=== PATIENT | male | born 1950 | race Caucasian/White ===

== ENCOUNTER 2017-01-07 19:22 | Emergency (ER) | payer SELFPAY ==
[2017-01-07] MEDS ORDERED: NS 0.9% 1000 ML* 1,000 ML IV ONE (20:05)
[2017-01-07] MEDS ORDERED: Diltiazem IV* 5 MG/ML 5 ML VIAL (for loading dose/IV Push) (25 MG) IV SLOW PU ONE (20:05)
--- NOTE | 2017-01-07 20:41 | RAD ---
HISTORY: Tachycardia COMPARISONS: None VIEWS:1: Single frontal portable view of the chest at 8:34 PM FINDINGS: LINES AND TUBES: None. CARDIOMEDIASTINAL SILHOUETTE: The cardiomediastinal silhouette is normal for portable technique. PLEURA: The costophrenic angles are sharp. No pleural abnormalities are noted. LUNG PARENCHYMA: The lungs are clear. ABDOMEN: The upper abdomen is clear. There is no subphrenic gas. BONES AND SOFT TISSUES: No bone or soft tissue abnormalities are noted. IMPRESSION: NO ACTIVE CARDIOPULMONARY DISEASE.
[2017-01-07] MEDS ORDERED: Diltiazem CD CAP* 120 MG PO ONE (20:55)
[2017-01-07 21:02] LABS: Hematocrit 43 % (42-52); Hemoglobin 14.3 g/dl (14.0-18.0); Mean Corpuscular HGB Conc 34 g/dl (31-36); Mean Corpuscular Hemoglobin 31 pg (27-31); Mean Corpuscular Volume 91 fL (80-94); Mean Platelet Volume 9 um3 (7.4-10.4); Red Blood Count 4.65 10^6/ul (4.0-5.4); Red Cell Distribution Width 14 % (10.5-15); White Blood Count 8.2 10^3/ul (3.5-10.8)
[2017-01-07 21:17] LABS: BUN/Creatinine Ratio 23.7 (8-20); C Reactive Protein 4.91 mg/L (< 5.00); Calcium 9.1 mg/dL (8.6-10.3); Globulin 2.7 g/dL (2-4); Magnesium 2.3 mg/dL (1.9-2.7); Potassium 3.9 mmol/L (3.5-5.0); Total Bilirubin 0.4 mg/dL (0.2-1.0); Total Protein 6.7 g/dL (6.4-8.9)
[2017-01-07 21:19] LABS: Troponin I 0.01 ng/mL (<0.04)
[2017-01-07 21:37] LABS: TSH (Thyroid Stimulating Horm) 0.45 mcIU/mL (0.34-5.60)
--- NOTE | 2017-01-07 22:45 | ED ---
Dunia Barbosa Rebecca, scribed for Kevin Christianson MD on 01/07/17 at 2003 . Palpitations / Dysrhythmia - HPI Summary HPI Summary: Pt is a 66 y/o M who presents to ED c/o palpitations. Sx began last night and have been constant since onset, characterized as irregular and fast. Sx aggravated and alleviated by nothing. Additionally c/o elevated BP and CP last night when sx began, both of which are resolved. Denies SOB. PMHx A Fib 4 months ago where he was admitted to a hospital in [place] for 2 days and treated successfully with Cordarone. Current sx are similar to prior episode of A Fib.Takes Eliquis BID and has been compliant. Son reports he took a medication last night that was prescribed by the hospital where he was admitted to treat recurrences of A Fib. Patient speaks [place] and is accompanied by his and son with the son acting as a talent program manager. - History of Current Complaint Chief Complaint: EDDysrhythmPalp Time Seen by Provider: 01/07/17 19:52 Hx Obtained From: Family/Machine Load Clerk - Son - talent program manager Onset/Duration: Still Present Timing: Constant Character: Fast, Irregular Aggravating: Nothing Alleviating: Nothing Associated Signs & Symptoms: Chest Pain - resolved - Allergy/Home Medications Allergies/Adverse Reactions: Allergies Allergy/AdvReac Type Severity Reaction Status Date / Time No Known Allergies Allergy Verified 01/07/17 20:59 PMH/Surg Hx/FS Hx/Imm Hx Cardiovascular History: Reports: Hx Atrial Fibrillation, Hx Hypercholesterolemia History: Reports: Other Problems/Disorders - Hx Prostate adenoma Infectious Disease History: No Infectious Disease History: Reports: Traveled Outside the [place] in Last 30 Days - [place] - Family History Known Family History: Positive: Other - Stomach CA - mother - Social History Alcohol Use: Occasionally Substance Use Type: Reports: None Smoking Status (MU): Never Smoked Tobacco Review of Systems Positive: Other - elevated BP - resolved Positive: Palpitations - irregular and fast, Chest Pain - resolved Negative: Shortness Of Breath All Other Systems Reviewed And Are Negative: Yes Physical Exam - Summary Physical Exam Summary: General: well-appearing, no pain distress Skin: warm, color reflects adequate perfusion, dry Head: normal Eyes: EOMI, JIMENEZ ENT: normal Neck: supple, nontender Respiratory: CTA, breath sounds present Cardiovascular: tachycardic, IRR Abdomen: soft, nontender Bowel: present Musculoskeletal: normal, strength/ROM intact Neurological: normal, sensory/motor intact, A&O x3 Psychological: affect/mood appropriate Triage Information Reviewed: Yes Vital Signs On Initial Exam: Initial Vitals Temp Pulse Resp BP Pulse Ox 97.8 F 67 16 110/81 98 01/07/17 19:25 01/07/17 19:25 01/07/17 19:25 01/07/17 19:25 01/07/17 19:25 Vital Signs Reviewed: Yes Diagnostics - Vital Signs Vital Signs Temp Pulse Resp BP Pulse Ox 01/07/17 19:25 97.8 F 67 16 110/81 98 - Laboratory Lab Results: Lab Results 01/07/17 01/07/17 01/07/17 Range/Units 20:45 20:45 20:45 WBC 8.2 (3.5-10.8) 10^3/ul RBC 4.65 (4.0-5.4) 10^6/ul Hgb 14.3 (14.0-18.0) g/dl Hct 43 (42-52) % MCV 91 (80-94) fL MCH 31 (27-31) pg MCHC 34 (31-36) g/dl RDW 14 (10.5-15) % Plt Count 205 (150-450) 10^3/ul MPV 9 (7.4-10.4) um3 Neut % (Auto) 68.8 (38-83) % Lymph % (Auto) 20.5 L (25-47) % [place] % (Auto) 8.9 (1-9) % Eos % (Auto) 0.7 (0-6) % Baso % (Auto) 1.1 (0-2) % Absolute Neuts (auto) 5.6 (1.5-7.7) 10^3/ul Absolute Lymphs (auto) 1.7 (1.0-4.8) 10^3/ul Absolute Monos (auto) 0.7 (0-0.8) 10^3/ul Absolute Eos (auto) 0.1 (0-0.6) 10^3/ul Absolute Basos (auto) 0.1 (0-0.2) 10^3/ul Absolute Nucleated RBC 0 10^3/ul Nucleated RBC % 0 INR (Anticoag Therapy) 1.06 (0.89-1.11) APTT 37.2 H (26.0-36.3) seconds Sodium (133-145) mmol/L Potassium (3.5-5.0) mmol/L Chloride (101-111) mmol/L Carbon Dioxide (22-32) mmol/L Anion Gap (2-11) mmol/L BUN (6-24) mg/dL Creatinine (0.67-1.17) mg/dL Est GFR ( Amer) (>60) Est GFR (Non-Af Amer) (>60) BUN/Creatinine Ratio (8-20) Glucose (70-100) mg/dL Lactic Acid (0.5-2.0) mmol/L Calcium (8.6-10.3) mg/dL Magnesium (1.9-2.7) mg/dL Total Bilirubin (0.2-1.0) mg/dL AST (13-39) U/L ALT (7-52) U/L Alkaline Phosphatase (34-104) U/L Troponin I (<0.04) ng/mL C-Reactive Protein (< 5.00) mg/L B-Natriuretic Peptide 572 H ( - 100) pg/mL Total Protein (6.4-8.9) g/dL Albumin (3.2-5.2) g/dL Globulin (2-4) g/dL Albumin/Globulin Ratio (1-3) Lipase (11.0-82.0) U/L TSH (0.34-5.60) mcIU/mL 01/07/17 01/07/17 Range/Units 20:45 20:45 WBC (3.5-10.8) 10^3/ul RBC (4.0-5.4) 10^6/ul Hgb (14.0-18.0) g/dl Hct (42-52) % MCV (80-94) fL MCH (27-31) pg MCHC (31-36) g/dl RDW (10.5-15) % Plt Count (150-450) 10^3/ul MPV (7.4-10.4) um3 Neut % (Auto) (38-83) % Lymph % (Auto) (25-47) % [place] % (Auto) (1-9) % Eos % (Auto) (0-6) % Baso % (Auto) (0-2) % Absolute Neuts (auto) (1.5-7.7) 10^3/ul Absolute Lymphs (auto) (1.0-4.8) 10^3/ul Absolute Monos (auto) (0-0.8) 10^3/ul Absolute Eos (auto) (0-0.6) 10^3/ul Absolute Basos (auto) (0-0.2) 10^3/ul Absolute Nucleated RBC 10^3/ul Nucleated RBC % INR (Anticoag Therapy) (0.89-1.11) APTT (26.0-36.3) seconds Sodium 139 (133-145) mmol/L Potassium 3.9 (3.5-5.0) mmol/L Chloride 106 (101-111) mmol/L Carbon Dioxide 26 (22-32) mmol/L Anion Gap 7 (2-11) mmol/L BUN 23 (6-24) mg/dL Creatinine 0.97 (0.67-1.17) mg/dL Est GFR ( Amer) 99.0 (>60) Est GFR (Non-Af Amer) 77.0 (>60) BUN/Creatinine Ratio 23.7 H (8-20) Glucose 124 H (70-100) mg/dL Lactic Acid 1.0 (0.5-2.0) mmol/L Calcium 9.1 (8.6-10.3) mg/dL Magnesium 2.3 (1.9-2.7) mg/dL Total Bilirubin 0.40 (0.2-1.0) mg/dL AST 10 L (13-39) U/L ALT 14 (7-52) U/L Alkaline Phosphatase 48 (34-104) U/L Troponin I 0.01 (<0.04) ng/mL C-Reactive Protein 4.91 (< 5.00) mg/L B-Natriuretic Peptide ( - 100) pg/mL Total Protein 6.7 (6.4-8.9) g/dL Albumin 4.0 (3.2-5.2) g/dL Globulin 2.7 (2-4) g/dL Albumin/Globulin Ratio 1.5 (1-3) Lipase 52 (11.0-82.0) U/L TSH 0.45 (0.34-5.60) mcIU/mL Result Diagrams: 01/07/17 20:45 01/07/17 20:45 Lab Statement: Any lab studies that have been ordered have been reviewed, and results considered in the medical decision making process. - Radiology CXR Xray Interpretation: No Acute Changes - NO ACTIVE CARDIOPULMONARY DISEASE. Radiology Interpretation Completed By: Radiologist - EKG 2016 Cardiac Rate: Tachycardia - 119 bpm EKG Rhythm: Atrial Fibrillation - Rapid A Fib at [address] Segment: Non-Specific - ST elevation in V2 Re-Evaluation - Re-Evaluation First Eval Re-Evaluation Time: 20:53 Change: Improved Comment: HR < 100 bpm. NAD. Course/Dx - Course Course Of Treatment: NO CRITICAL CARE TIME. PATIENT GIVEN CARDIZEM 20MG IV X 1 AND CARDIZEM 120MG CD X 1. HE FEELS WELL IN ED. HR STAYING UNDER 100 BPM. PT ON ELIQUIST. HE WISHES TO GO HOME. DISCUSSED RESULTS WITH SON/PATIENT/. THEY UNDERSTAND TO RETURN IF WORSE. THEY WILL F/U WITH PMD. Assessment/Plan: Pt is a 66 y/o M who presents to ED c/o constant palpitations charcaterized as fast, irregular since last night. Additionally c/o elevated BP and CP last night when sx began, both of which are resolved. Denies SOB. PMHx A Fib 4 months ago where he was admitted to a hospital in [place] for 2 days and treated successfully with Cordarone. Current sx are similar to prior episode of A Fib. Takes Eliquis BID and has been compliant. Son reports he took a medication last night that was prescribed by the hospital where he was admitted to treat recurrences of A Fib. Patient speaks [place] and is accompanied by his and son with the son acting as a talent program manager. BNP of 572. CXR reveals no acute findings. EKG reveals rapid A fib with ST elevations in V2. - Diagnoses Provider Diagnoses: Afib Discharge - Discharge Plan Condition: Stable Disposition: HOME Prescriptions: Diltiazem CD CAP* [Cardizem CD CAP*] 120 mg PO DAILY #30 cap.cd Patient Education Materials: A-fib (Atrial Fibrillation) (ED) Referrals: No Primary Care Phys,NOPCP [Primary Care Provider] - Additional Instructions: FOLLOW UP WITH YOUR DOCTOR. CALL TOMORROW FOR FOLLOW UP. CONTINUE YOUR MEDICATIONS DIRECTED. RETURN TO THE EMERGENCY DEPARTMENT FOR ANY WORSENING OF YOUR CONDITION; CHEST PAIN, SHORTNESS OF BREATH, YOU FEEL ILL OR QUESTIONS OR CONCERNS. The documentation as recorded by the Dunia caballero Rebecca accurately reflects the service I personally performed and the decisions made by me, Kevin Christianson MD.
[2017-01-07 22:53] VITALS: BP 100/68
== END 2017-01-07 22:54 | disposition home or self-care (01) ==
LOC: ED 19:22
DX: I48.91 Unspecified atrial fibrillation (principal); Z79.01 Long term (current) use of anticoagulants; E78.00 Pure hypercholesterolemia, unspecified
CPT/HCPCS: 36415; 71010; 80053; 83605; 83690; 83735; 83880; 84443; 84484; 85025; 85610; 85730; 86140; 93005; 99283; A9270-GY